=== PATIENT | female | born 1985 | race Caucasian/White ===

== ENCOUNTER 2017-09-02 03:40 | Emergency (ER) | payer OTHER ==
[~2017-09-02] VITALS: Ht 170.2 cm; Wt 80.0 kg
[2017-09-02] MEDS ORDERED: KETOROLAC 30 MG/1 ML ONE (04:00)
[2017-09-02] MEDS ORDERED: KETOROLAC 30 MG/1 ML IM ONE (04:00)
[2017-09-02 04:19] LABS: HCG UR SG 1.018 (1.003-1.030); MICROSCOPIC AUTO
[2017-09-02 04:21] LABS: CULTURE INDICATED? NO
[2017-09-02 04:36] LABS: AMPHETAMINE SCREEN, URINE Negative (Negative); BARBITURATE SCREEN, URINE Negative (Negative); BENZODIAZEPINE SCREEN, URINE Positive (Negative); CANNABINOID SCREEN, URINE Positive (Negative); COCAINE SCREEN, URINE Negative (Negative); METHADONE SCREEN, URINE Negative (Negative); OPIATE SCREEN, URINE Negative (Negative)
[2017-09-02 04:37] LABS: BASOPHILS # (AUTO) 0.06 x10^3/uL (0-0.1); BASOPHILS % (AUTO) 1 % (0-1); EOSINOPHILS # (AUTO) 0.32 x10^3/uL (0-0.4); EOSINOPHILS % (AUTO) 3 % (1-7); LYMPHOCYTES # (AUTO) 4.14 x10^3/uL (1-3.4); LYMPHOCYTES % (AUTO) 40 % (22-44); MD NO; MEAN CORPUSCULAR HEMOGLOBIN 29.5 pg (27.0-34.8); MEAN CORPUSCULAR HGB CONC 33.9 g/dL (32.4-35.8); MEAN CORPUSCULAR VOLUME 86.8 fL (80-100); MEAN PLATELET VOLUME 8.7 fL (7.4-10.4); MONOCYTES # (AUTO) 0.63 x10^3/uL (0.2-0.8); MONOCYTES % (AUTO) 6 % (2-9); NEUTROPHILS # (AUTO) 5.13 x10^3/uL (1.8-6.8); NEUTROPHILS % (AUTO) 50 % (42-75); PLATELET COUNT 313 x10^3/uL (130-400); RED BLOOD COUNT 5.08 x10^6/uL (3.82-5.3); RED CELL DISTRIBUTION WIDTH 13.3 % (9.6-15.2)
[2017-09-02 04:46] LABS: ALANINE AMINOTRANSFERASE 32 U/L (12-78); ALBUMIN 3.8 g/dL (3.4-5.0); ANION GAP 11 mmol/L (5-15); CALCIUM 8.6 mg/dL (8.5-10.1); CHLORIDE 112 mmol/L (98-107)
[2017-09-02 04:47] LABS: ALKALINE PHOSPHATASE 100 U/L (45-117); BILIRUBIN,TOTAL 0.2 mg/dL (0.2-1.0); TOTAL PROTEIN 8.3 g/dL (6.4-8.2)
[2017-09-02 05:11] VITALS: BP 120/75
== END 2017-09-02 05:13 | disposition home or self-care (01) ==
LOC: ED 03:52
DX: K29.20 Alcoholic gastritis without bleeding (principal); F10.120 Alcohol abuse with intoxication, uncomplicated; Z88.0 Allergy status to penicillin; Z79.899 Other long term (current) drug therapy
CPT/HCPCS: 36415; 80053; 80307; 81001; 81025; 83690; 85025; 96372; 99284; J1885

== ENCOUNTER 2019-09-25 18:19 | Emergency (ER) | payer SELFPAY ==
[~2019-09-25] VITALS: Ht 172.7 cm; Wt 97.0 kg
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
[2019-09-25] MEDS ORDERED: OMEP-110 PO (19:51)
--- NOTE | 2019-09-25 21:07 | NUR ---
PT RESTING ON GURNEY, NO ACUTE DISTRESS NOTED. VSS.
[2019-09-25 21:08] VITALS: BP 127/84
== END 2019-09-25 21:59 | disposition home or self-care (01) ==
LOC: ED 21:13
DX: S80.871A Other superficial bite, right lower leg, initial encounter (principal); L03.115 Cellulitis of right lower limb; J45.909 Unspecified asthma, uncomplicated; F17.200 Nicotine dependence, unspecified, uncomplicated; W54.0XXA Bitten by dog, initial encounter; Y93.89 Activity, other specified; Y92.488 Other paved roadways as the place of occurrence of the external cause; Y99.8 Other external cause status
CPT/HCPCS: 99283

== ENCOUNTER 2019-10-04 19:49 | Emergency (ER) | payer BC, OTHER ==
[~2019-10-04] VITALS: Ht 172.7 cm; Wt 98.4 kg
[~2019-10-04 19:49] MED LIST: OMEP-110 PO
[2019-10-04 19:54] VITALS: BP 167/89
[2019-10-04] MEDS ORDERED: IBUPROFEN 200 MG TABLET ONE (20:54)
--- NOTE | 2019-10-04 20:57 | NUR ---
Patient requesting ibuprofen for head pain. Verbal order from ERP. Medicated patient per order.
[2019-10-04] MEDS ORDERED: IBUPROFEN 200 MG TABLET PO ONE (21:00)
[2019-10-04 21:13] LABS: BASOPHILS # (AUTO) 0.02 x10^3/uL (0-0.1); BASOPHILS % (AUTO) 0 % (0-1); EOSINOPHILS # (AUTO) 0.16 x10^3/uL (0-0.4); EOSINOPHILS % (AUTO) 3 % (1-7); LYMPHOCYTES # (AUTO) 0.52 x10^3/uL (1-3.4); LYMPHOCYTES % (AUTO) 8 % (22-44); MD NO; MEAN CORPUSCULAR HEMOGLOBIN 29.4 pg (27.0-34.8); MEAN CORPUSCULAR HGB CONC 33.6 g/dL (32.4-35.8); MEAN CORPUSCULAR VOLUME 87.4 fL (80-100); MEAN PLATELET VOLUME 8.8 fL (7.4-10.4); MONOCYTES # (AUTO) 0.54 x10^3/uL (0.2-0.8); MONOCYTES % (AUTO) 8 % (2-9); NEUTROPHILS # (AUTO) 5.19 x10^3/uL (1.8-6.8); NEUTROPHILS % (AUTO) 81 % (42-75); PLATELET COUNT 236 x10^3/uL (130-400)
== END 2019-10-04 21:39 | disposition home or self-care (01) ==
LOC: ED 20:13
DX: M54.2 Cervicalgia (principal); I88.9 Nonspecific lymphadenitis, unspecified; R51 Headache; J45.909 Unspecified asthma, uncomplicated; F17.200 Nicotine dependence, unspecified, uncomplicated; I10 Essential (primary) hypertension
CPT/HCPCS: 36415; 85025; 86308; 99283